=== PATIENT | female | born 1990 | race Caucasian/White ===

== ENCOUNTER 2017-02-10 22:06 | Inpatient (IN) | payer OTHER ==
[2017-02-11] MEDS ORDERED: Nalbuphine 20 MG/1 ML Amp IVPUSH PRN (00:08)
[2017-02-11] MEDS ORDERED: Sodium Chloride 0.9% 10 ML Syringe FLUSH PRN (00:08)
[2017-02-11] MEDS ORDERED: Oxytocin/Lactated Ringers 10 UNIT/1,000 ML BAG IV SCH ×2 (00:15→05:15)
[2017-02-11] MEDS: Lactated Ringers 1,000 ML IV SCH ×6 (01:30→16:45)
--- NOTE | 2017-02-11 06:30 | PCM.LDHP ---
L&D History of Present Illness - General Date of Service: 02/11/17 Admit Problem/Dx: Patient Status Order with Admit Dx/Problem 02/10/17 22:35 Patient Status [ADT] Routine Patient Status: Refer to Observation Admission Diagnosis/Problem: Reason for Admit: Nurse Unit Type: Labor and Delivery Admitting Physician: Aspen Camargo Attending Physician: Aspen Camargo Medicare 96 Hour Certification Statement: This Patient is Admitted for Inpatient Services and is Medically Appropriate and Meets Medical Necessity for Inpatient Admission. I Reasonably Expect the Patient Will Require Inpatient Services That Span a Period of Time Over 2 Midnights. My Rationale for Medically Necessary Inpatient Care Will Be Found in the Admission History & Physical and Progress Notes. I Reasonably Expect the Patient to be Discharged or Transferred Within 96 Hours After Admission to This [facility]. Admission Diagnosis/Problem Admission Diagnosis/Problem Source of Information: Patient History Limitations: Reports: No limitations - History of Present Illness Introduction:: Patient is a 26-year-old at 38-5/7 weeks who presents tonight with spontaneous rupture of membranes. Happened around 9 PM or so. Minimal contractions or cramping since that time. 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: : 1 Para: 0 - Infectious Disease History Infectious Disease History: Reports: Herpes - Past Surgical History HEENT Surgical History: Reports: Tonsillectomy Social & Family History - Family History HEENT: Reports: None Cardiac: Reports: None GI: Reports: Other (see below) Other GI Family History: colon cancer mother OBGYN: Reports: Oncologic: Reports: Colon, Leukemia, Skin - Tobacco Use Smoking Status *Q: Never Smoker Second Hand Smoke Exposure: No - Caffeine Use Caffeine Use: Reports: None - Recreational Drug Use Recreational Drug Use: No H&P Review of Systems - Review of Systems: Review Of Systems: See Below General: Reports: no symptoms Pulmonary: Reports: No Symptoms Cardiovascular: Reports: no symptoms Gastrointestinal: Reports: No symptoms Genitourinary: Reports: no symptoms Musculoskeletal: Reports: no symptoms L&D Exam - Exam Exam: See Below - Vital Signs Vital Signs: Last Vital Signs Temp 36.7 C 02/11/17 00:08 Pulse 73 02/11/17 00:08 Resp 16 02/11/17 00:08 BP 121/60 02/11/17 00:08 Pulse Ox Weight: 77.111 kg - OB Specific Contraction Intensity: Irritability movement: active heart tones: present heart tones per min: 115 Heart Rate (FHR) Variability: Moderate (6-25 bmp) Presentation: Vertex - Silva Score Silva Score Cervix Position: Midposition Silva Score Consistency: Soft Silva Score Effacement: 51-70% Silva Score Dilation: 1-2 cm Silva Score 's Station: -2 Silva Score Total: 7 - Exam General: alert, oriented, cooperative Lungs: Clear to auscultation, Normal respiratory effort Cardiovascular: regular rate, regular rhythm Abdomen: soft Genitourinary: Normal external exam Extremities: normal inspection Skin: warm, dry, intact - Patient Data Lab Results last 24 hrs: Laboratory Results - last 24 hr 02/11/17 02/11/17 Range/Units 00:30 00:30 WBC 8.48 (3.98-10.04) K/mm3 RBC 3.75 L (3.98-5.22) M/mm3 Hgb 11.5 (11.2-15.7) gm/L Hct 33.6 L (34.1-44.9) % MCV 89.6 (79.4-94.8) fl MCH 30.7 (25.6-32.2) pg MCHC 34.2 (32.2-35.5) g/dl RDW Std Deviation 41.9 (36.4-46.3) fL Plt Count 159 L (182-369) K/mm3 MPV 10.9 (9.4-12.3) fl Neut % (Auto) 70.7 (34.0-71.1) % Lymph % (Auto) 19.1 L (19.3-51.7) % Hardy % (Auto) 9.4 (4.7-12.5) % Eos % (Auto) 0.6 L (0.7-5.8) Baso % (Auto) 0.1 (0.1-1.2) % Neut # (Auto) 5.99 (1.56-6.13) K/mm3 Lymph # (Auto) 1.62 (1.18-3.74) K/mm3 [place] # (Auto) 0.80 H (0.24-0.36) K/mm3 Eos # (Auto) 0.05 (0.04-0.36) K/mm3 Baso # (Auto) 0.01 (0.01-0.08) K/mm3 Blood Type O POSITIVE Gel Antibody Screen Negative Result Diagrams: 02/11/17 00:30 - Problem List (1) 38 weeks gestation of SNOMED Code(s): 38949939 ICD Code: Z3A.38 - 38 WEEKS GESTATION OF Status: Acute Current Visit: Yes (2) SROM (spontaneous rupture of membranes) SNOMED Code(s): 297894980 ICD Code: HBX0297 - Status: Acute Current Visit: Yes Problem List Initiated/Reviewed/Updated: Yes Orders Last 24hrs: Active Orders 24 hr Category Date Time Status Patient Status [ADT] Routine ADT 02/10/17 22:35 Active Activity as Tolerated [RC] PFP Care 02/11/17 00:08 Active Communication Order [RC] ASDIRECTED Care 02/11/17 00:08 Active Notify Provider [RC] PFP Care 02/11/17 00:08 Active Notify Provider [RC] PRN Care 02/11/17 00:08 Active Peripheral IV Care [RC] . DIRECTED Care 02/11/17 00:10 Active Urinary Catheter Assessment [RC] ASDIRECTED Care 02/11/17 00:08 Active Vital Signs [RC] PER UNIT ROUTINE Care 02/11/17 00:08 Active Clear Liquid Diet [DIET] Diet 02/11/17 Breakfast Active PATIENT RETYPE [BBK] Stat Lab 02/11/17 00:30 Results TYPE AND SCREEN [BBK] Stat Lab 02/11/17 00:30 Results Lactated Ringers [Ringers, Lactated] 1,000 ml Med 02/11/17 00:15 Active IV ASDIRECTED Nalbuphine [Nubain] Med 02/11/17 00:08 Active 10 mg IVPUSH Q2H PRN Oxytocin/Lactated Ringers [Pitocin in LR 10 Units/1,000 Med 02/11/17 00:15 Active ML] 10 unit in 1,000 ml IV TITRATE Oxytocin/Lactated Ringers [Pitocin in LR 10 Units/1,000 Med 02/11/17 05:15 Active ML] 10 unit in 1,000 ml IV TITRATE Sodium Chloride 0.9% [Saline Flush] Med 02/11/17 00:08 Active 10 ml FLUSH ASDIRECTED PRN Electronic Heart Tones Ext w TOCO [WOMSER] Oth 02/11/17 00:08 Ordered Routine Electronic Heart Tones Internal [WOMSER] Per Unit Ot 02/11/17 00:08 Ordered Routine Peripheral IV Insertion Adult [OM.PC] Routine Ot 02/11/17 00:08 Ordered Resuscitation Status Routine Resus Stat 02/11/17 00:08 Ordered Medication Orders Lactated Ringer's (Ringers, Lactated) 1,000 mls @ 100 mls/hr IV ASDIRECTED SHANICE Last Admin: 02/11/17 01:30 Dose: 100 mls/hr Oxytocin/Lactated Ringer's (Pitocin In Lr 10 Units/1,000 Ml) 10 unit in 1,000 mls @ 500 mls/hr IV TITRATE SHANICE Oxytocin/Lactated Ringer's (Pitocin In Lr 10 Units/1,000 Ml) 10 unit in 1,000 mls @ 12 mls/hr IV TITRATE SHANICE; 2 MUNITS/MIN PRN Reason: Protocol Nalbuphine HCl (Nubain) 10 mg IVPUSH Q2H PRN PRN Reason: Pain (moderate 4-6) Sodium Chloride (Saline Flush) 10 ml FLUSH ASDIRECTED PRN PRN Reason: Keep Vein Open Assessment/Plan Comment:: 26 y/o at 38 5/7 wks with SROM * CBC and type and screen * GBS negative, no need for antibiotics * History of HSV, has been on acyclovir prophylaxis * If no initiation of contractions on her own and we'll have to start Pitocin for augmentation * Pain management per patient preference * Anticipate
--- NOTE | 2017-02-11 06:32 | PCM.PNLD ---
Labor Progress Note - VS & Meds Vital Signs: Last Vital Signs Temp 36.7 C 02/11/17 00:08 Pulse 73 02/11/17 00:08 Resp 16 02/11/17 00:08 BP 121/60 02/11/17 00:08 Pulse Ox Active Medications: Current Medications Lactated Ringer's (Ringers, Lactated) 1,000 mls @ 100 mls/hr IV ASDIRECTED SHANICE Last Admin: 02/11/17 01:30 Dose: 100 mls/hr Oxytocin/Lactated Ringer's (Pitocin In Lr 10 Units/1,000 Ml) 10 unit in 1,000 mls @ 500 mls/hr IV TITRATE SHANICE Oxytocin/Lactated Ringer's (Pitocin In Lr 10 Units/1,000 Ml) 10 unit in 1,000 mls @ 12 mls/hr IV TITRATE SHANICE; 2 MUNITS/MIN PRN Reason: Protocol Nalbuphine HCl (Nubain) 10 mg IVPUSH Q2H PRN PRN Reason: Pain (moderate 4-6) Sodium Chloride (Saline Flush) 10 ml FLUSH ASDIRECTED PRN PRN Reason: Keep Vein Open - Uterine Contractions Uterine Monitoring Mode: External [place] Contraction Intensity: Moderate - Monitoring Monitor Mode: External Ultrasound Heart Rate (FHR) Baseline: 110 Heart Rate (FHR) Variability: Moderate (6-25 bmp) Accelerations: Present, 15x15 Decelerations: Early Strip Review: Category I - Labor Progress (Free Text) Labor Progress: Patient doing well. On 10 of pitocin. Now starting to feel uncomfortable. Defer SVE for now. Continue present management.
[2017-02-11] MEDS ORDERED: diphenhydrAMINE 50 MG/ML SDV IVPUSH PRN (07:36)
[2017-02-11] MEDS ORDERED: Ondansetron 4 MG/2 ML SDV IVPUSH PRN (07:36)
[2017-02-11] MEDS ORDERED: fentaNYL 100 MCG/2 ML SDV EPIDUR PRN (07:36)
[2017-02-11] MEDS ORDERED: ePHEDrine 50 MG/ML SDV IVPUSH PRN (07:36)
--- NOTE | 2017-02-11 07:36 | PCM.PREANE ---
Preanesthetic Assessment - Anesthesia/Transfusion/Family Hx Anesthesia History: Prior Anesthesia Without Reaction Transfusion History: No Prior Transfusion(s) - Physical Assessment Respiratory Rate: 16 Vital Signs: Last Vital Signs Temp 36.7 C 02/11/17 00:08 Pulse 73 02/11/17 00:08 Resp 16 02/11/17 00:08 BP 121/60 02/11/17 00:08 Pulse Ox Height: 1.57 m Weight: 77.111 kg - Lab Values: Laboratory Last Values WBC 8.48 K/mm3 (3.98-10.04) 02/11/17 00:30 RBC 3.75 M/mm3 (3.98-5.22) L 02/11/17 00:30 Hgb 11.5 gm/L (11.2-15.7) 02/11/17 00:30 Hct 33.6 % (34.1-44.9) L 02/11/17 00:30 MCV 89.6 fl (79.4-94.8) 02/11/17 00:30 MCH 30.7 pg (25.6-32.2) 02/11/17 00:30 MCHC 34.2 g/dl (32.2-35.5) 02/11/17 00:30 RDW Std Deviation 41.9 fL (36.4-46.3) 02/11/17 00:30 Plt Count 159 K/mm3 (182-369) L 02/11/17 00:30 MPV 10.9 fl (9.4-12.3) 02/11/17 00:30 Neut % (Auto) 70.7 % (34.0-71.1) 02/11/17 00:30 Lymph % (Auto) 19.1 % (19.3-51.7) L 02/11/17 00:30 [place] % (Auto) 9.4 % (4.7-12.5) 02/11/17 00:30 Eos % (Auto) 0.6 (0.7-5.8) L 02/11/17 00:30 Baso % (Auto) 0.1 % (0.1-1.2) 02/11/17 00:30 Neut # (Auto) 5.99 K/mm3 (1.56-6.13) 02/11/17 00:30 Lymph # (Auto) 1.62 K/mm3 (1.18-3.74) 02/11/17 00:30 [place] # (Auto) 0.80 K/mm3 (0.24-0.36) H 02/11/17 00:30 Eos # (Auto) 0.05 K/mm3 (0.04-0.36) 02/11/17 00:30 Baso # (Auto) 0.01 K/mm3 (0.01-0.08) 02/11/17 00:30 Blood Type O POSITIVE 02/11/17 00:30 Gel Antibody Screen Negative 02/11/17 00:30 - Allergies Allergies/Adverse Reactions: Allergies Allergy/AdvReac Type Severity Reaction Status Date / Time No Known Allergies Allergy Verified 02/01/17 00:00 PreAnesthesia Questionnaire - Past Health History Medical/Surgical History: Denies 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: - Infectious Disease History Infectious Disease History: Reports: Herpes - SUBSTANCE USE Smoking Status *Q: Never Smoker Second Hand Smoke Exposure: No Recreational Drug Use History: No - HOME MEDS Home Medications: Home Meds Ferrous Sulfate [Iron] 325 mg PO DAILY 02/01/17 [History] Vit #76/Iron,Carb/Fa [Pnv 29-1 Tablet] 1 each PO DAILY 02/01/17 [ History] valACYclovir HCl [Valacyclovir] 500 mg Q12HR MDD tid 02/01/17 [History] - CURRENT (IN HOUSE) MEDS Current Meds: Current Medications Lactated Ringer's (Ringers, Lactated) 1,000 mls @ 100 mls/hr IV ASDIRECTED SHANICE Last Admin: 02/11/17 01:30 Dose: 100 mls/hr Oxytocin/Lactated Ringer's (Pitocin In Lr 10 Units/1,000 Ml) 10 unit in 1,000 mls @ 500 mls/hr IV TITRATE SHANICE Oxytocin/Lactated Ringer's (Pitocin In Lr 10 Units/1,000 Ml) 10 unit in 1,000 mls @ 12 mls/hr IV TITRATE SHANICE; 2 MUNITS/MIN PRN Reason: Protocol Nalbuphine HCl (Nubain) 10 mg IVPUSH Q2H PRN PRN Reason: Pain (moderate 4-6) Sodium Chloride (Saline Flush) 10 ml FLUSH ASDIRECTED PRN PRN Reason: Keep Vein Open Preanesthetic Assessment - ANESTHESIA/TRANSFUSION/FAMILY HX Anesthesia/Transfusion History: No Prior Transfusion(s), Prior Anesthesia ( wisdom teeth extraction, no problems ) Family History of Anesthesia Reaction: No Intubation History: Unknown - REVIEW OF SYSTEMS Constitutional: Reports: no symptoms 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 Respiratory: Reports: no symptoms Cardiovascular: Reports: no symptoms GI: Reports: no symptoms Other: Reports: None - PHYSICAL ASSESSMENT RR: 16 Vital Signs: Last Vital Signs Temp 36.7 C 02/11/17 00:08 Pulse 73 02/11/17 00:08 Resp 16 02/11/17 00:08 BP 121/60 02/11/17 00:08 Pulse Ox Height: 1.57 m Weight: 77.111 kg NPO Status Date: 02/11/17 NPO Status Time: 05:00 ASA Class: 2 Mental Status: Alert & Oriented x3 Airway Class: Mallampati = 1 Dentition: Reports: Normal Dentition Thyro-Mental Finger Breadths: 3 ROM/Head Extension: Full Respiratory Status: lungs clear to auscultation bilaterally Cardiovascular Status: regular rate & rhythm, normal S1, S2, no murmur, blood pressure WNL - LAB Values: Laboratory Last Values WBC 8.48 K/mm3 (3.98-10.04) 02/11/17 00:30 RBC 3.75 M/mm3 (3.98-5.22) L 02/11/17 00:30 Hgb 11.5 gm/L (11.2-15.7) 02/11/17 00:30 Hct 33.6 % (34.1-44.9) L 02/11/17 00:30 MCV 89.6 fl (79.4-94.8) 02/11/17 00:30 MCH 30.7 pg (25.6-32.2) 02/11/17 00:30 MCHC 34.2 g/dl (32.2-35.5) 02/11/17 00:30 RDW Std Deviation 41.9 fL (36.4-46.3) 02/11/17 00:30 Plt Count 159 K/mm3 (182-369) L 02/11/17 00:30 MPV 10.9 fl (9.4-12.3) 02/11/17 00:30 Neut % (Auto) 70.7 % (34.0-71.1) 02/11/17 00:30 Lymph % (Auto) 19.1 % (19.3-51.7) L 02/11/17 00:30 [place] % (Auto) 9.4 % (4.7-12.5) 02/11/17 00:30 Eos % (Auto) 0.6 (0.7-5.8) L 02/11/17 00:30 Baso % (Auto) 0.1 % (0.1-1.2) 02/11/17 00:30 Neut # (Auto) 5.99 K/mm3 (1.56-6.13) 02/11/17 00:30 Lymph # (Auto) 1.62 K/mm3 (1.18-3.74) 02/11/17 00:30 [place] # (Auto) 0.80 K/mm3 (0.24-0.36) H 02/11/17 00:30 Eos # (Auto) 0.05 K/mm3 (0.04-0.36) 02/11/17 00:30 Baso # (Auto) 0.01 K/mm3 (0.01-0.08) 02/11/17 00:30 Blood Type O POSITIVE 02/11/17 00:30 Gel Antibody Screen Negative 02/11/17 00:30 - ALLERGIES Allergies/Adverse Reactions: Allergies Allergy/AdvReac Type Severity Reaction Status Date / Time No Known Allergies Allergy Verified 02/01/17 00:00 - BLOOD Blood Available: No Product(s) Available: None - ANESTHESIA PLAN Preop Beta Cuco: No Anesthesia Type Planned: Epidural - ACKNOWLEDGEMENTS Pt an Appropriate Candidate for the Planned Anesthesia: Yes Alternatives and Risks of Anesthesia Discussed w Pt/Guardian: Yes Pt/Guardian Understands and Agrees with Anesthesia Plan: Yes
[2017-02-11] MEDS: Bupivacaine/fentaNYL/NS 100 ML Bag EPIDUR SCH ×2 (07:57→14:09)
--- NOTE | 2017-02-11 13:21 | PCM.PNLD ---
Labor Progress Note - VS & Meds Vital Signs: Last Vital Signs Temp 36.7 C 02/11/17 00:08 Pulse 73 02/11/17 00:08 Resp 16 02/11/17 07:36 BP 121/60 02/11/17 00:08 Pulse Ox Active Medications: Current Medications Diphenhydramine HCl (Benadryl) 25 mg IVPUSH Q6H PRN PRN Reason: Pruritis Ephedrine Sulfate (Ephedrine Sulfate) 5 mg IVPUSH ASDIRECTED PRN PRN Reason: Hypotension Fentanyl (Sublimaze) 100 mcg EPIDUR Q3H PRN PRN Reason: Pain Last Admin: 02/11/17 07:57 Dose: 100 mcg Fentanyl/Bupivacaine HCl (Fentanyl/Bupivacaine/Ns 2 Mcg-0.125% 100 Ml) 100 ml EPIDUR ASDIRECTED SHANICE Last Admin: 02/11/17 07:57 Dose: 100 ml Lactated Ringer's (Ringers, Lactated) 1,000 mls @ 100 mls/hr IV ASDIRECTED SHANICE Last Admin: 02/11/17 10:55 Dose: 100 mls/hr Oxytocin/Lactated Ringer's (Pitocin In Lr 10 Units/1,000 Ml) 10 unit in 1,000 mls @ 500 mls/hr IV TITRATE SHANICE Oxytocin/Lactated Ringer's (Pitocin In Lr 10 Units/1,000 Ml) 10 unit in 1,000 mls @ 12 mls/hr IV TITRATE SHANICE; 2 MUNITS/MIN PRN Reason: Protocol Last Titration: 02/11/17 09:00 Dose: 0 munits/min, 0 mls/hr Nalbuphine HCl (Nubain) 10 mg IVPUSH Q2H PRN PRN Reason: Pain (moderate 4-6) Ondansetron HCl (Zofran) 4 mg IVPUSH ONETIME PRN PRN Reason: Nausea/Vomiting Sodium Chloride (Saline Flush) 10 ml FLUSH ASDIRECTED PRN PRN Reason: Keep Vein Open - Uterine Contractions Uterine Monitoring Mode: External [place] Contraction Intensity: Moderate to Strong - Monitoring Monitor Mode: External Ultrasound Heart Rate (FHR) Baseline: 110 Heart Rate (FHR) Variability: Moderate (6-25 bmp) Accelerations: Present, 15x15 Decelerations: Early, Late (Intermittent ) Strip Review: Category II - Vaginal Exam Dilation (cm): 8 Effacement (Percent): 80-90 Station: 0 Cervical Position: Anterior - Labor Progress (Free Text) Labor Progress: Patient doing well. Did have to have pitocin discontinued around 1000 due to some larger variables/intermittent late decelerations. Was 6 cm at that time. Currently again having early decelerations and some rare late decelerations. 8 cm dilated. Will continue to assess closely. Consider re-initiation of pitocin if needed. Aspen Camargo
[2017-02-11] MEDS ORDERED: Sodium Chloride 0.9% 100 ML ONE (16:59)
[2017-02-11] MEDS ORDERED: Ampicillin 2 GM in Sodium Chloride 0.9% 100 ML IV ONE (17:00)
[2017-02-11] MEDS ORDERED: Docusate Sodium 100 MG Cap PO PRN (18:02)
[2017-02-11] MEDS ORDERED: Acetaminophen 325 MG Tab PO PRN (18:02)
[2017-02-11] MEDS ORDERED: Oxytocin/Lactated Ringers 10 UNIT/1,000 ML BAG IV ONE (18:05)
--- NOTE | 2017-02-11 18:09 | PCM.DEL ---
L & D Note - General Info Date of Service: 02/11/17 - Delivery Note Labor: augmented by oxytocin Delivery Outcome: Livebirth Delivery Method: Spontaneous Vaginal Delivery Presentation: Vertex Nuchal cord: none Anesthesia Type: Epidural Amniotic Fluid Description: Clear Episiotomy Type: None Laceration: 2nd degree, perineal Suture type: vicryl Suture size: 2-0 Placenta: intact, spontaneous Cord: 3 vessels Estimated blood loss: 300 Resuscitation needed: Yes [place]: bulb syringe, stimulated, warmed, blanket used, warmer used Delivery Comments (Free Text/Narrative):: Throughout patient's labor course she had times of late and variable decelerations, but none recurrent. Did have to restart pitocin as she had not progressed past 8 cm in approximately 4.5 hours. She then did progress to complete dilation. During this time she was found to have a moderate amount of bright red bleeding which was thought to be more than expected. OR crew was called to be on stand by. She started pushing at this time. With pushing she was noted to have deep variables into the 90's. After approximately 20 minutes of pushing baby also developed a rebound tachycardia into the 170's. She was also at Variables also did start to widen and were lasting about 45 seconds. Due to this combination of tachycardia and deeper/wider variables with pushing discussion was held to need for assisted vaginal delivery. Reviewed risks of lacerations to maternal vaginal wall, lacerations to scalp, and bleeding/ hematoma in skull/brain. She did agree to proceed. The patient was pushing in the dorsal lithotomy position. Sterile vaginal exam complete/complete/+3 station. head in [place] presentation. Maternal pushing effort was good and the pelvis was felt to be adequate for an instrument assisted delivery. Given non reassuring status the decision was made to proceed with vacuum assisted vaginal delivery. The mushroom cup was placed without difficulty with care to avoid the vaginal side major. It was put to a pressure of 65 mm Hg at 1712. Delivered occurred over 5 contractions with 1 pop off. Vacuum removed after delivery of head at 1721. Total time of vacuum use was 9 minutes. No nuchal cord present. The remainder of the infant delivered without difficulty. The umbilical cord was clamped and cut and the was handed to awaiting lock stitch channeler. Cord segment obtained for cord blood gas. ABG 7.33 and VBG 7.37. Cord blood obtained. Placenta allowed time to separate and spontaneously expelled. Inspection of the perineum following delivery with a 2nd degree laceration which was repaired with a 2-0 vicryl in the typical fashion. - Patient Data Vitals - most recent: Last Vital Signs Temp 36.7 C 02/11/17 00:08 Pulse 73 02/11/17 00:08 Resp 16 02/11/17 07:36 BP 121/60 02/11/17 00:08 Pulse Ox Weight - most recent: 77.111 kg I&O - last 24 hours: Intake & Output 02/11/17 02/11/17 02/11/17 06:59 14:59 22:59 Intake Total 120 Balance 120 Lab Results last 24 hrs: Laboratory Results - last 24 hr 02/11/17 02/11/17 Range/Units 00:30 00:30 WBC 8.48 (3.98-10.04) K/mm3 RBC 3.75 L (3.98-5.22) M/mm3 Hgb 11.5 (11.2-15.7) gm/L Hct 33.6 L (34.1-44.9) % MCV 89.6 (79.4-94.8) fl MCH 30.7 (25.6-32.2) pg MCHC 34.2 (32.2-35.5) g/dl RDW Std Deviation 41.9 (36.4-46.3) fL Plt Count 159 L (182-369) K/mm3 MPV 10.9 (9.4-12.3) fl Neut % (Auto) 70.7 (34.0-71.1) % Lymph % (Auto) 19.1 L (19.3-51.7) % [place] % (Auto) 9.4 (4.7-12.5) % Eos % (Auto) 0.6 L (0.7-5.8) Baso % (Auto) 0.1 (0.1-1.2) % Neut # (Auto) 5.99 (1.56-6.13) K/mm3 Lymph # (Auto) 1.62 (1.18-3.74) K/mm3 [place] # (Auto) 0.80 H (0.24-0.36) K/mm3 Eos # (Auto) 0.05 (0.04-0.36) K/mm3 Baso # (Auto) 0.01 (0.01-0.08) K/mm3 Blood Type O POSITIVE Gel Antibody Screen Negative Med Orders - Current: Current Medications Acetaminophen (Tylenol) 650 mg PO Q4H PRN PRN Reason: mild pain or fever Docusate Sodium (Colace) 100 mg PO BID PRN PRN Reason: Constipation Ibuprofen (Motrin) 600 mg PO Q4H PRN PRN Reason: Mild pain or fever Discontinued Medications Diphenhydramine HCl (Benadryl) 25 mg IVPUSH Q6H PRN PRN Reason: Pruritis Ephedrine Sulfate (Ephedrine Sulfate) 5 mg IVPUSH ASDIRECTED PRN PRN Reason: Hypotension Fentanyl (Sublimaze) 100 mcg EPIDUR Q3H PRN PRN Reason: Pain Last Admin: 02/11/17 07:57 Dose: 100 mcg Fentanyl/Bupivacaine HCl (Fentanyl/Bupivacaine/Ns 2 Mcg-0.125% 100 Ml) 100 ml EPIDUR ASDIRECTED SHANICE Last Admin: 02/11/17 14:09 Dose: 100 ml Lactated Ringer's (Ringers, Lactated) 1,000 mls @ 100 mls/hr IV ASDIRECTED SHANICE Last Admin: 02/11/17 16:45 Dose: 100 mls/hr Oxytocin/Lactated Ringer's (Pitocin In Lr 10 Units/1,000 Ml) 10 unit in 1,000 mls @ 500 mls/hr IV TITRATE SHANICE Oxytocin/Lactated Ringer's (Pitocin In Lr 10 Units/1,000 Ml) 10 unit in 1,000 mls @ 12 mls/hr IV TITRATE SHANICE; 2 MUNITS/MIN PRN Reason: Protocol Last Titration: 02/11/17 16:16 Dose: 0.5 munits/min, 3 mls/hr Ampicillin Sodium 2 gm/ Sodium (Chloride) 100 mls @ 200 mls/hr IV NOW ONE Stop: 02/11/17 17:29 Sodium Chloride (Normal Saline) Confirm Administered Dose 100 mls @ as directed .ROUTE .STK-MED ONE Stop: 02/11/17 17:00 Nalbuphine HCl (Nubain) 10 mg IVPUSH Q2H PRN PRN Reason: Pain (moderate 4-6) Ondansetron HCl (Zofran) 4 mg IVPUSH ONETIME PRN PRN Reason: Nausea/Vomiting Sodium Chloride (Saline Flush) 10 ml FLUSH ASDIRECTED PRN PRN Reason: Keep Vein Open - Problem List & Annotations (1) 38 weeks gestation of SNOMED Code(s): 18298941 Code(s): Z3A.38 - 38 WEEKS GESTATION OF Status: Acute Current Visit: Yes (2) SROM (spontaneous rupture of membranes) SNOMED Code(s): 583291242 Code(s): TFW4636 - Status: Acute Current Visit: Yes (3) Maternal fever during labor SNOMED Code(s): 52382373, 501591810 Code(s): O75.2 - PYREXIA DURING LABOR, NOT ELSEWHERE CLASSIFIED Status: Acute Current Visit: Yes (4) Non-reassuring status SNOMED Code(s): 842296446 Code(s): WYB5248 - Status: Acute Current Visit: Yes (5) Vacuum extraction, delivered, current hospitalization SNOMED Code(s): 191468632 Code(s): O66.5 - ATTEMPTED APPLICATION OF VACUUM EXTRACTOR AND FORCEPS Status: Acute Current Visit: Yes - Problem List Review Problem List Initiated/Reviewed/Updated: Yes - My Orders Last 24 Hours: My Active Orders 02/11/17 00:08 Urinary Catheter Assessment [RC] ASDIRECTED Resuscitation Status Routine 02/11/17 10:56 Communication Order [RC] ASDIRECTED 02/11/17 17:45 BLOOD GAS ARTERIAL UMBILICAL [BG] Routine BLOOD GAS VENOUS UMBILICAL [BG] Routine 02/11/17 18:02 Activity as Tolerated [RC] PER UNIT ROUTINE Vital Signs [RC] ASDIRECTED Acetaminophen [Tylenol] 650 mg PO Q4H PRN Docusate Sodium [Colace] 100 mg PO BID PRN Ibuprofen [Motrin] 600 mg PO Q4H PRN Assess Lochia [WOMSER] Per Unit Routine Assess Uterine Involution [WOMSER] Per Unit Routine Breast Pump [WOMSER] Per Unit Routine Heat Therapy [OM.PC] PRN Ice Therapy [OM.PC] Per Unit Routine Perineal Care [OM.PC] Per Unit Routine Peripheral IV Discontinue [OM.PC] Routine Sitz Bath [OM.PC] Per Unit Routine 02/11/17 Dinner Regular Diet [DIET] 02/12/17 18:02 Heat Therapy [OM.PC] PRN - Assessment Assessment:: 26 y/o G1 now P1 PPD#0 from [facility] at 38 5/7 wks - Plan Plan:: [facility] * Routine cares * Received 1 dose of antibiotics in labor for fever during pushing. Will not continue currently, but monitor closely * Encourage breast feeding * Discharge home in 1-2 days Aspen Camargo MD
[2017-02-11] MEDS ORDERED: Bupivacaine 0.25% 10 ML SDV ONE (19:00)
[2017-02-11] MEDS: Ibuprofen 600 MG Tab PO PRN (21:45)
[2017-02-12] MEDS ORDERED: Witch Hazel Medicated Pads 100/Jar TOP PRN (02:32)
[2017-02-12] MEDS ORDERED: Benzocaine/Menthol 20%-0.5% Spray 56 GM Canister TOP PRN ×2 (02:32→02:35)
[2017-02-12] MEDS: Ibuprofen 600 MG Tab PO PRN ×4 (04:27→21:09)
--- NOTE | 2017-02-12 06:54 | PCM.PNPP ---
- General Info Date of Service: 02/12/17 Functional Status: Reports: pain controlled, tolerating diet, ambulating, urinating - Review of Systems General: Reports: No Symptoms Pulmonary: Reports: no symptoms Cardiovascular: Reports: No Symptoms Gastrointestinal: Reports: No symptoms Genitourinary: Reports: no symptoms Musculoskeletal: Reports: no symptoms Neurological: Reports: No Symptoms - Patient Data Vital Signs - most recent: Last Vital Signs Temp 36.4 C 02/12/17 04:18 Pulse 64 02/12/17 04:00 Resp 16 02/12/17 04:18 BP 113/58 L 02/12/17 04:18 Pulse Ox Weight - most recent: 77.111 kg I&O - last 24 hours: Intake & Output 02/11/17 02/11/17 02/12/17 14:59 22:59 06:59 Intake Total 120 Balance 120 Lab Results - last 24 hrs: Laboratory Results - last 24 hr 02/11/17 02/11/17 Range/Units 00:30 17:45 Cord ABG pH 7.33 H (7.22-7.32) Cord ABG pCO2 41.9 L (42-58) Cord ABG pO2 30 H (12-24) Cord ABG HCO3 21.2 L (24-26) Cord ABG Base Excess -4.2 (-5.5-0.1) Cord VBG pH 7.37 (7.28-7.40) Cord VBG pCO2 36.5 (32.8-38.6) Cord VBG pO2 29 (28-32) Cord VBG HCO3 20.4 (19-24) Cord VBG Base Excess -3.8 (-4.4-0.4) Blood Type O POSITIVE Gel Antibody Screen Negative Med Orders - Current: Current Medications Acetaminophen (Tylenol) 650 mg PO Q4H PRN PRN Reason: mild pain or fever Benzocaine/Menthol (Dermoplast Pain Relief [place]) 0 gm TOP ASDIRECTED PRN PRN Reason: Pain Docusate Sodium (Colace) 100 mg PO BID PRN PRN Reason: Constipation Ibuprofen (Motrin) 600 mg PO Q4H PRN PRN Reason: Mild pain or fever Last Admin: 02/12/17 04:27 Dose: 600 mg Witch Claudia (Tucks) 1 pad TOP ASDIRECTED PRN PRN Reason: Pain Discontinued Medications Benzocaine/Menthol (Dermoplast Pain Relief [place]) 1 gm TOP ASDIRECTED PRN PRN Reason: Pain Diphenhydramine HCl (Benadryl) 25 mg IVPUSH Q6H PRN PRN Reason: Pruritis Ephedrine Sulfate (Ephedrine Sulfate) 5 mg IVPUSH ASDIRECTED PRN PRN Reason: Hypotension Fentanyl (Sublimaze) 100 mcg EPIDUR Q3H PRN PRN Reason: Pain Last Admin: 02/11/17 07:57 Dose: 100 mcg Fentanyl/Bupivacaine HCl (Fentanyl/Bupivacaine/Ns 2 Mcg-0.125% 100 Ml) 100 ml EPIDUR ASDIRECTED SHANICE Last Admin: 02/11/17 14:09 Dose: 100 ml Lactated Ringer's (Ringers, Lactated) 1,000 mls @ 100 mls/hr IV ASDIRECTED SHANICE Last Admin: 02/11/17 16:45 Dose: 100 mls/hr Oxytocin/Lactated Ringer's (Pitocin In Lr 10 Units/1,000 Ml) 10 unit in 1,000 mls @ 500 mls/hr IV TITRATE SHANICE Last Admin: 02/11/17 18:10 Dose: 750 mls/hr Oxytocin/Lactated Ringer's (Pitocin In Lr 10 Units/1,000 Ml) 10 unit in 1,000 mls @ 12 mls/hr IV TITRATE SHANICE; 2 MUNITS/MIN PRN Reason: Protocol Last Titration: 02/11/17 16:16 Dose: 0.5 munits/min, 3 mls/hr Ampicillin Sodium 2 gm/ Sodium (Chloride) 100 mls @ 200 mls/hr IV NOW ONE Stop: 02/11/17 17:29 Last Admin: 02/11/17 17:00 Dose: 200 mls/hr Sodium Chloride (Normal Saline) Confirm Administered Dose 100 mls @ as directed .ROUTE .STK-MED ONE Stop: 02/11/17 17:00 Last Admin: 02/11/17 18:13 Dose: Not Given Oxytocin/Lactated Ringer's (Pitocin In Lr 10 Units/1,000 Ml) Confirm Administered Dose 10 unit in 1,000 mls @ as directed IV .STK-MED ONE Stop: 02/11/17 18:06 Last Admin: 02/11/17 18:13 Dose: Not Given Nalbuphine HCl (Nubain) 10 mg IVPUSH Q2H PRN PRN Reason: Pain (moderate 4-6) Ondansetron HCl (Zofran) 4 mg IVPUSH ONETIME PRN PRN Reason: Nausea/Vomiting Sodium Chloride (Saline Flush) 10 ml FLUSH ASDIRECTED PRN PRN Reason: Keep Vein Open - Infant Interaction Disposition, : to Nursery Infant Interaction: Not Applicable Feeding: Attempted ; Nursed Fair/Poor Support Person: Significant Other - Recovery Exam Fundal Tone: Firm Fundal Level: 1 Fingerbreadths Below Umbilicus Lochia Amount: Moderate Lochia Color: Rubra/Red Perineum Description: Intact, Minimal Bruising/Swelling Episiotomy/Laceration: Approximated Bladder Status: Voiding Urinary Elimination: Voided - Exam General: alert, oriented, cooperative Abdomen: soft, no tenderness Extremities: no edema Skin: warm, dry, intact - Problem List & Annotations (1) 38 weeks gestation of SNOMED Code(s): 05697453 Code(s): Z3A.38 - 38 WEEKS GESTATION OF Status: Acute Current Visit: Yes (2) SROM (spontaneous rupture of membranes) SNOMED Code(s): 132482365 Code(s): AQE0468 - Status: Acute Current Visit: Yes (3) Maternal fever during labor SNOMED Code(s): 46492262, 104189223 Code(s): O75.2 - PYREXIA DURING LABOR, NOT ELSEWHERE CLASSIFIED Status: Acute Current Visit: Yes (4) Non-reassuring status SNOMED Code(s): 640040483 Code(s): YHU1725 - Status: Acute Current Visit: Yes (5) Vacuum extraction, delivered, current hospitalization SNOMED Code(s): 010402172 Code(s): O66.5 - ATTEMPTED APPLICATION OF VACUUM EXTRACTOR AND FORCEPS Status: Acute Current Visit: Yes - Problem List Review Problem List Initiated/Reviewed/Updated: Yes - My Orders Last 24 Hours: My Active Orders 02/11/17 10:56 Communication Order [RC] ASDIRECTED 02/11/17 18:02 Activity as Tolerated [RC] PER UNIT ROUTINE Vital Signs [RC] 04,12,20 Acetaminophen [Tylenol] 650 mg PO Q4H PRN Docusate Sodium [Colace] 100 mg PO BID PRN Ibuprofen [Motrin] 600 mg PO Q4H PRN Assess Lochia [WOMSER] Per Unit Routine Assess Uterine Involution [WOMSER] Per Unit Routine Breast Pump [WOMSER] Per Unit Routine Heat Therapy [OM.PC] PRN Ice Therapy [OM.PC] Per Unit Routine Perineal Care [OM.PC] Per Unit Routine Peripheral IV Discontinue [OM.PC] Routine Sitz Bath [OM.PC] Per Unit Routine 02/11/17 Dinner Regular Diet [DIET] 02/12/17 02:32 Witch Claudia [Tucks] 1 pad TOP ASDIRECTED PRN 02/12/17 02:35 Benzocaine/Menthol [Dermoplast Pain Relief [place]] 0 gm TOP ASDIRECTED PRN 02/12/17 18:02 Heat Therapy [OM.PC] PRN - Assessment Assessment:: 26 y/o G1 now P1 PPD#1 from VAVD at 38 5/7 wks - Plan Plan:: VAVD * Routine cares * Received 1 dose of antibiotics in labor for fever during pushing. No fever , continue to monitor * Encourage breast feeding * Discharge home tomorrow although likely will be in house for further monitoring of baby. Baby boy Nguyễn with cephalohematoma after VAVD Aspen Camargo MD
--- NOTE | 2017-02-13 07:55 | PCM.DCSUM1 ---
Discharge Summary - Hospital Course Brief History: Admitted. VAVD. Unremarkable course. - Discharge Data Discharge Date: 02/13/17 Discharge Disposition: Home, Self-Care 01 Condition: Good - Discharge Diagnosis/Problem(s) (1) Vacuum extraction, delivered, current hospitalization SNOMED Code(s): 585960271 ICD Code: O66.5 - ATTEMPTED APPLICATION OF VACUUM EXTRACTOR AND [employer]CEPS Status: Acute Current Visit: Yes - Patient Instructions Diet: Usual Diet as Tolerated Activity: As Tolerated Activity, Other: pelvic rest Driving: May Drive Today Showering/Bathing: May Shower Notify Provider of: Fever, Increased Pain, Nausea and/or Vomiting - Discharge Plan Home Medications: Home Meds Ferrous Sulfate [Iron] 325 mg PO DAILY 02/01/17 [History] Vit #76/Iron,Carb/Fa [Pnv 29-1 Tablet] 1 each PO DAILY 02/01/17 [ History] valACYclovir HCl [Valacyclovir] 500 mg Q12HR MDD tid 02/01/17 [History] Referrals: Aspen Camargo MD [Primary Care Provider] - - Discharge Summary/Plan Comment DC Time >30 min.: No - Patient Data Vitals - Most Recent: Last Vital Signs Temp 36.6 C 02/13/17 04:12 Pulse 56 L 02/13/17 04:12 Resp 14 02/13/17 04:12 BP 110/69 02/13/17 04:12 Pulse Ox 97 02/13/17 04:12 Weight - Most Recent: 77.111 kg Med Orders - Current: Current Medications Acetaminophen (Tylenol) 650 mg PO Q4H PRN PRN Reason: mild pain or fever Benzocaine/Menthol (Dermoplast Pain Relief Given) 0 gm TOP ASDIRECTED PRN PRN Reason: Pain Docusate Sodium (Colace) 100 mg PO BID PRN PRN Reason: Constipation Ibuprofen (Motrin) 600 mg PO Q4H PRN PRN Reason: Mild pain or fever Last Admin: 02/12/17 21:09 Dose: 600 mg Witch Claudia (Tucks) 1 pad TOP ASDIRECTED PRN PRN Reason: Pain Discontinued Medications Benzocaine/Menthol (Dermoplast Pain Relief Given) 1 gm TOP ASDIRECTED PRN PRN Reason: Pain Diphenhydramine HCl (Benadryl) 25 mg IVPUSH Q6H PRN PRN Reason: Pruritis Ephedrine Sulfate (Ephedrine Sulfate) 5 mg IVPUSH ASDIRECTED PRN PRN Reason: Hypotension Fentanyl (Sublimaze) 100 mcg EPIDUR Q3H PRN PRN Reason: Pain Last Admin: 02/11/17 07:57 Dose: 100 mcg Fentanyl/Bupivacaine HCl (Fentanyl/Bupivacaine/Ns 2 Mcg-0.125% 100 Ml) 100 ml EPIDUR ASDIRECTED SHANICE Last Admin: 02/11/17 14:09 Dose: 100 ml Lactated Ringer's (Ringers, Lactated) 1,000 mls @ 100 mls/hr IV ASDIRECTED SHANICE Last Admin: 02/11/17 16:45 Dose: 100 mls/hr Oxytocin/Lactated Ringer's (Pitocin In Lr 10 Units/1,000 Ml) 10 unit in 1,000 mls @ 500 mls/hr IV TITRATE SHANICE Last Admin: 02/11/17 18:10 Dose: 750 mls/hr Oxytocin/Lactated Ringer's (Pitocin In Lr 10 Units/1,000 Ml) 10 unit in 1,000 mls @ 12 mls/hr IV TITRATE SHANICE; 2 MUNITS/MIN PRN Reason: Protocol Last Titration: 02/11/17 16:16 Dose: 0.5 munits/min, 3 mls/hr Ampicillin Sodium 2 gm/ Sodium (Chloride) 100 mls @ 200 mls/hr IV NOW ONE Stop: 02/11/17 17:29 Last Admin: 02/11/17 17:00 Dose: 200 mls/hr Sodium Chloride (Normal Saline) Confirm Administered Dose 100 mls @ as directed .ROUTE .STK-MED ONE Stop: 02/11/17 17:00 Last Admin: 02/11/17 18:13 Dose: Not Given Oxytocin/Lactated Ringer's (Pitocin In Lr 10 Units/1,000 Ml) Confirm Administered Dose 10 unit in 1,000 mls @ as directed IV .STK-MED ONE Stop: 02/11/17 18:06 Last Admin: 02/11/17 18:13 Dose: Not Given Nalbuphine HCl (Nubain) 10 mg IVPUSH Q2H PRN PRN Reason: Pain (moderate 4-6) Ondansetron HCl (Zofran) 4 mg IVPUSH ONETIME PRN PRN Reason: Nausea/Vomiting Sodium Chloride (Saline Flush) 10 ml FLUSH ASDIRECTED PRN PRN Reason: Keep Vein Open *Q Meaningful Use (DIS) - VTE *Q VTE Criteria *Q: - Stroke *Q Stroke Criteria *Q: - AMI *Q AMI Criteria *Q:
[2017-02-13] MEDS: Ibuprofen 600 MG Tab PO PRN (13:39)
[2017-02-13 14:16] VITALS: BP 112/70
[2017-02-13] MEDS ORDERED: Lanolin 100% Cream 7 GM Tube TOP PRN (17:49)
== END 2017-02-13 18:57 | disposition home or self-care (01) | DRG 775 ==
LOC: JD.OB 22:06 → JD.OBCHECK 22:06 → JD.OB 22:35 → JD.OBCHECK 23:34 → UNDOADMOB 23:35 → JD.OB 23:35 → OBSVTOIN 02-11 17:42
PROVIDERS: ADMIT Obstetrics & Gynecology; ATTEND Obstetrics & Gynecology
PROC: 10D07Z6 Extraction of Products of Conception, Vacuum, Via Natural or Artificial Opening (ICD-10-PCS; principal; 2017-02-11)
PROC: 0KQM0ZZ Repair Perineum Muscle, Open Approach (ICD-10-PCS; 2017-02-11)
PROC: 00HU33Z Insertion of Infusion Device into Spinal Canal, Percutaneous Approach (ICD-10-PCS; 2017-02-11)
PROC: 3E0R3CZ (ICD-10-PCS; 2017-02-11)
DX: O42.92 Full-term premature rupture of membranes, unspecified as to length of time between rupture and onset of labor (principal); Z3A.39 39 weeks gestation of pregnancy; Z37.0 Single live birth; O70.1 Second degree perineal laceration during delivery
CPT/HCPCS: 36415; 36600; 82803; 85025; 86850; 86900; 86901; A9270-GY; J0290; J2590; J3010; J7030; J7120

== ENCOUNTER 2021-04-06 01:57 | Inpatient (IN) | payer BC ==
[~2021-04-06 01:57] MED LIST: Bupivacaine 0.25% 10 ML SDV ONE
--- NOTE | 2021-04-06 03:27 | PCM.LDHP ---
L&D History of Present Illness - General Date of Service: 04/06/21 Admit Problem/Dx: Patient Status Order with Admit Dx/Problem 04/06/21 02:12 Patient Status [ADT] Routine Admission Diagnosis/Problem Admission Diagnosis/Problem 04/06/21 03:18 Jennifer is a 30-year-old 4 para 1-0-2-1 female who is admitted into labor and delivery on the early a.m. of 04/06/2021 at 39 weeks gestational age with an ADELINE of 04/13/2021 in active labor with progressive cervical dilation to 4+ centimeters, 90% effaced, anterior cervix, -2 station, intact but with questionable leakage of amniotic fluid with baby in a cephalic presentation. Source of Information: Patient History Limitations: Reports: No Limitations - History of Present Illness Introduction:: Jennifer is a 30-year-old 4 para 1-0-2-1 female who is admitted into labor and delivery on the early a.m. of 04/06/2021 at 39 weeks gestational age with an ADELINE of 04/13/2021 in active labor with progressive cervical dilation to 4+ centimeters, 90% effaced, anterior cervix, -2 station, intact but with questionable leakage of amniotic fluid with baby in a cephalic presentation. She reports that at approximately 2300 hrs. on 04/05/2021 she began having leakage of fluid as she is up to the bathroom. She soaked a pad. She had at least 1 or 2 other pads since that time that were saturated with what appears to be clear amniotic fluid. She is sheron every 3 minutes, they are progressive in nature in both length and intensity. heart tones are reassuring. Baby has been active. 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 She had menarche at approximately age 15. Cycles q. months. Her ADELINE of 04/13/2021 was set by an early ultrasound done at 6-1/7 weeks gestational age. Patient has a history of genital HSV but has not had any outbreaks during and has been on acyclovir 400 mg p.o. 3 times daily prophylactically since 36 weeks. She denies any signs or symptoms of HSV at this time. She denies any abnormal Pap smears or other STDs. course: Patient was seen early in the at approximately 6-1/7 weeks gestational age. She has been followed on a regular basis. Her weight gain has been from 143 pounds to 168 pounds for 25 pound increase. Fundal heigh t growth has been appropriate. Baby's been in a vertex presentation. She passed her 1 hour GTT. Follow-up ultrasound was consistent with dates. Immunizations include flu vaccination 09/13/2020. Meningococcal vaccination 2008. Hepatitis B 1991 and 1992. Laboratory testing in shows her blood to be all positive with a negative antibody screen. First hemoglobin was 12.7 g/dL and platelets were 227,000. Her rubella titer shows immunity. RPR was nonreactive. Hepatitis B surface antigen was nonreactive. Second trimester hemoglobin was 11.7 g/dL and platelets were 192,000. Her 1 hour GTT was normal at 71 mg/dL. Group B strep screen was positive. Allergies: None Medications: 1. vitamins 1 p.o. daily 2. Acyclovir 400 mg p.o. 3 times daily prophylactically for HSV history. Past medical history: 1. Miscarriage x2 1 associated with a D&C for treatment 2. Genital HSVremote history Past surgical history: 1. D&C 2. [place] tooth extraction Family history: Mother is secondary to colon cancer at age 54. Father is alive and well. One sister is healthy. Maternal grandmother and grandfather at age 96 and 80 respectively. Grandmother secondary to old age but did have breast cancer. Maternal grandmother deceasedAlzheimer's in his 80s. Maternal grandfather secondary to leukemia in his 80s. 2 paternal first cousins with history of breast cancer 1 with demise secondary to the breast cancer in her 40s. The other status post bilateral mastectomy. No anesthesia, bleeding, blood clotting problems noted in the family. Social history: Patient is . She works at [employer]. She does not use any significant also alcohol, drugs or tobacco. is Carlos. He works for the [employer]. Review of systems: In general patient has no complaints. She is sheron every 3 to 4 minutes but feels they are manageable at this point. Baby has been active. She has leakage of fluid as per HPI. Skin: Negative Lungs: No infectious symptoms or shortness of breath Cardiovascular: No chest pain or exercise intolerance Breasts: No lumps, changes in size, pain, dimpling, discharge or axillary or supraclavicular concerns. Patient plans to breast-feed. She has had changes associated with . GI: Negative : Leakage of amniotic fluid noted. Contractions present. Changes associated with . Musculoskeletal: Negative Neurological: Negative Physical exam: In general the patient is well-developed, well-nourished, pleasant female of stated age in no acute distress. Skin is warm dry without lesions. HEENT, neck and back within normal limits. Lungs are clear with good breath sounds in all lung todd. Cardiovascular exam shows regular and rhythm without murmurs. Breast exam is deferred having been done at first visit and found to be normal by patient's history. Abdomen is gravid with last fundal height clinic at 48 cm. Baby in vertex presentation. Genital per digital exam shows cervix to be 4+ centimeters, 90% effaced, bulging bag aguilar, anterior cervix, -2 station, cervix very soft. Extremities and neurological exam are grossly within normal limits. 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: - Infectious Disease History Infectious Disease History: Reports: Herpes - Past Surgical History HEENT Surgical History: Reports: Tonsillectomy Social & Family History - Family History HEENT: Reports: None Cardiac: Reports: None GI: Reports: Other (See Below) Other GI Family History: colon cancer mother OBGYN: Reports: Oncologic: Reports: Colon, Leukemia, Skin - Caffeine Use Caffeine Use: Reports: None H&P Review of Systems - Review of Systems: Review Of Systems: See Below L&D Exam - Exam Exam: See Below - Patient Data Lab Results Last 24 hrs: Laboratory Results - last 24 hr 04/06/21 Range/Units 02:36 Membrane Rupture Positive H - Problem List (1) 39 weeks gestation of SNOMED Code(s): 98824335 ICD Code: Z3A.39 - 39 WEEKS GESTATION OF Status: Acute Current Visit: Yes (2) Genital herpes simplex virus (HSV) infection in mother affecting SNOMED Code(s): 556580794898681 ICD Code: O98.319 - OTH INFECT W SEXL MODE OF TRANSMISS COMP PREG, UNSP TRI; A60.09 - HERPESVIRAL INFECTION OF OTHER UROGENITAL TRACT Status: Acute Current Visit: Yes (3) SROM (spontaneous rupture of membranes) SNOMED Code(s): 332476403 ICD Code: TAK6945 - Status: Acute Current Visit: Yes Problem List Initiated/Reviewed/Updated: Yes Orders Last 24hrs: Active Orders 24 hr Category Date Time Status Patient Status [ADT] Routine ADT 04/06/21 02:12 Active Non Stress Test [RC] PER UNIT ROUTINE Care 04/06/21 02:12 Active Vital Signs [RC] PER UNIT ROUTINE Care 04/06/21 02:12 Active Resuscitation Status Routine Resus Stat 04/06/21 02:12 Ordered Assessment/Plan Comment:: 1.Jennifer is a 30-year-old 4 para 1-0-2-1 female who is admitted into labor and delivery on the early a.m. of 04/06/2021 at 39 weeks gestational age with an ADELINE of 04/13/2021 in active labor with progressive cervical dilation to 4+ centimeters, 90% effaced, anterior cervix, -2 station, intact but with questionable leakage of amniotic fluid with baby in a cephalic presentation. 2. Group B strep positive statuscandidate for antibiotic prophylaxis with ampicillin 3. Plans to breast-feed 4. Would prefer natural childbirth if labor is rapid. Is open to epidural. 5. HSV positive history with no evidence of outbreak at this time and no symptoms of outbreak. She has been on acyclovir prophylactically since 36 weeks Plan: 1. Anticipate 2. Group B strep prophylaxis 3. Epidural per patient desire 4. Admission labs consist of CBC, Covid19 testing, RPR per protocol. 5. Support breast-feeding decision.
[2021-04-06] MEDS: Lactated Ringers 1,000 ML IV SCH ×3 (03:30→07:09)
[2021-04-06] MEDS ORDERED: Ampicillin 2 GM AdvVial IV ONE (03:34)
[2021-04-06] MEDS ORDERED: Sodium Chloride 0.9% 10 ML Syringe FLUSH PRN (03:59)
[2021-04-06] MEDS ORDERED: Ondansetron 4 MG/2 ML SDV IVPUSH PRN (03:59)
[2021-04-06] MEDS ORDERED: Nalbuphine 10 MG/1 ML Vial IVPUSH PRN (03:59)
[2021-04-06] MEDS ORDERED: Lidocaine 1% 50 ML MDV INJECT ONE (03:59)
[2021-04-06] MEDS ORDERED: Oxytocin/Lactated Ringers 10 UNIT/1,000 ML BAG IV SCH (04:00)
[2021-04-06] MEDS ORDERED: Ampicillin 2 GM in Sodium Chloride 0.9% 100 ML IV ONE (04:00)
[2021-04-06] MEDS ORDERED: fentaNYL 100 MCG/2 ML SDV ONE (05:04)
[2021-04-06] MEDS ORDERED: diphenhydrAMINE 50 MG/ML SDV IVPUSH PRN (05:14)
[2021-04-06] MEDS ORDERED: fentaNYL 100 MCG/2 ML SDV EPIDUR PRN (05:14)
[2021-04-06] MEDS ORDERED: ePHEDrine 50 MG/ML SDV IVPUSH PRN (05:14)
[2021-04-06] MEDS ORDERED: Bupivacaine/fentaNYL/NS 100 ML Bag EPIDUR PRN (05:14)
--- NOTE | 2021-04-06 05:55 | PCM.PREANE ---
Preanesthetic Assessment - Procedure Proposed Procedure: Labor Epidural - Anesthesia/Transfusion/Family Hx Anesthesia History: Prior Anesthesia Without Reaction Family History of Anesthesia Reaction: No Transfusion History: No Prior Transfusion(s) - Review of Systems General: No Symptoms Pulmonary: No Symptoms Cardiovascular: No Symptoms Gastrointestinal: No Symptoms Neurological: No Symptoms Other: Reports: None - Physical Assessment Vital Signs: Last Vital Signs Temp 36.5 C 04/06/21 03:00 Pulse 66 04/06/21 03:00 Resp 14 04/06/21 03:00 BP 105/57 L 04/06/21 03:00 Pulse Ox 99 04/06/21 03:00 Height: 1.6 m Weight: 76.204 kg ASA Class: 2 Mental Status: Alert & Oriented x3 Airway Class: Mallampati = 1 Dentition: Reports: Normal Dentition Thyro-Mental Finger Breadths: 3 Mouth Opening Finger Breadths: 3 ROM/Head Extension: Full Lungs: Clear to Auscultation, Normal Respiratory Effort Cardiovascular: Regular Rate, Regular Rhythm - Lab Values: Laboratory Last Values WBC 7.68 K/mm3 (3.98-10.04) 04/06/21 04:15 RBC 3.75 M/mm3 (3.98-5.22) L 04/06/21 04:15 Hgb 11.4 gm/dl (11.2-15.7) 04/06/21 04:15 Hct 33.8 % (34.1-44.9) L 04/06/21 04:15 MCV 90.1 fl (79.4-94.8) 04/06/21 04:15 MCH 30.4 pg (25.6-32.2) 04/06/21 04:15 MCHC 33.7 g/dl (32.2-35.5) 04/06/21 04:15 RDW Std Deviation 43.4 fL (36.4-46.3) 04/06/21 04:15 Plt Count 177 K/mm3 (182-369) L 04/06/21 04:15 MPV 10.7 fl (9.4-12.3) 04/06/21 04:15 Neut % (Auto) 70.4 % (34.0-71.1) 04/06/21 04:15 Lymph % (Auto) 20.6 % (19.3-51.7) 04/06/21 04:15 [place] % (Auto) 8.3 % (4.7-12.5) 04/06/21 04:15 Eos % (Auto) 0.5 (0.7-5.8) L 04/06/21 04:15 Baso % (Auto) 0.1 % (0.1-1.2) 04/06/21 04:15 Neut # (Auto) 5.40 K/mm3 (1.56-6.13) 04/06/21 04:15 Lymph # (Auto) 1.58 K/mm3 (1.18-3.74) 04/06/21 04:15 [place] # (Auto) 0.64 K/mm3 (0.24-0.36) H 04/06/21 04:15 Eos # (Auto) 0.04 K/mm3 (0.04-0.36) 04/06/21 04:15 Baso # (Auto) 0.01 K/mm3 (0.01-0.08) 04/06/21 04:15 Membrane Rupture Positive H 04/06/21 02:36 SARS-CoV-2 RNA (BRADEN) Negative (NEGATIVE) 04/06/21 03:40 - Allergies Allergies/Adverse Reactions: Allergies Allergy/AdvReac Type Severity Reaction Status Date / Time No Known Allergies Allergy Verified 02/01/17 00:00 - Acknowledgements Anesthesia Type Planned: Epidural Pt an Appropriate Candidate for the Planned Anesthesia: Yes Alternatives and Risks of Anesthesia Discussed w Pt/Guardian: Yes Pt/Guardian Understands and Agrees with Anesthesia Plan: Yes PreAnesthesia Questionnaire - Past Health History Medical/Surgical History: Denies Medical/Surgical History HEENT History: Reports: Other (See Below) Other 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 History: 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: - Infectious Disease History Infectious Disease History: Reports: Herpes - Past Surgical History HEENT Surgical History: Reports: Tonsillectomy - HOME MEDS Home Medications: Home Meds Ferrous Sulfate [Iron] 325 mg PO DAILY 02/01/17 [History] Vit #76/Iron,Carb/Fa [Pnv 29-1 Tablet] 1 each PO DAILY 02/01/17 [History] valACYclovir HCl [Valacyclovir] 500 mg Q12HR MDD tid 02/01/17 [History] - CURRENT (IN HOUSE) MEDS Current Meds: Current Medications Diphenhydramine HCl (Diphenhydramine 50 Mg/Ml Sdv) 25 mg IVPUSH Q6H PRN PRN Reason: pruritis Ephedrine Sulfate (Ephedrine 50 Mg/Ml Sdv) 5 mg IVPUSH ASDIRECTED PRN PRN Reason: Hypotension Fentanyl (Fentanyl 100 Mcg/2 Ml Sdv) 100 mcg EPIDUR Q3H PRN PRN Reason: Pain Last Admin: 04/06/21 05:38 Dose: 100 mcg Documented by: Fentanyl/Bupivacaine HCl (Bupivacaine/Fentanyl/Ns 100 Ml Bag) 100 ml EPIDUR ASDIRECTED PRN PRN Reason: Pain Last Admin: 04/06/21 05:38 Dose: 100 ml Documented by: Lactated Ringer's (Ringers, Lactated) 1,000 mls @ 100 mls/hr IV ASDIRECTED SHANICE Last Admin: 04/06/21 04:30 Dose: 100 mls/hr Documented by: Ampicillin Sodium 1 gm/ Sodium (Chloride) 100 mls @ 200 mls/hr IV Q4H SHANICE Oxytocin/Lactated Ringer's (Pitocin In Lr 10 Units/1,000 Ml) 10 unit in 1,000 mls @ 500 mls/hr IV .CONTINUOUS SHANICE Nalbuphine HCl (Nalbuphine 10 Mg/1 Ml Vial) 10 mg IVPUSH Q2H PRN PRN Reason: Pain Ondansetron HCl (Ondansetron 4 Mg/2 Ml Sdv) 4 mg IVPUSH Q4H PRN PRN Reason: Nausea/Vomiting Sodium Chloride (Sodium Chloride 0.9% 10 Ml Syringe) 10 ml FLUSH ASDIRECTED PRN PRN Reason: Keep Vein Open Discontinued Medications Ampicillin Sodium (Ampicillin 2 Gm Advvial) Confirm Administered Dose 2 gm IV .STK-MED ONE Stop: 04/06/21 03:35 Fentanyl (Fentanyl 100 Mcg/2 Ml Sdv) Confirm Administered Dose 100 mcg .ROUTE .STK-MED ONE Stop: 04/06/21 05:05 Ampicillin Sodium 2 gm/ Sodium (Chloride) 100 mls @ 200 mls/hr IV ONETIME ONE Stop: 04/06/21 04:29 Lidocaine HCl (Lidocaine 1% 50 Ml Mdv) 50 ml INJECT ONETIME ONE Stop: 04/06/21 04:00
[2021-04-06] MEDS ORDERED: Ampicillin 1 GM in Sodium Chloride 0.9% 100 ML IV SCH (08:00)
--- NOTE | 2021-04-06 10:23 | PCM.SN.2 ---
- Free Text/Narrative Note: Stage I: Jennifer is a 30-year-old 4 now para 2-0-2-2 female who was admitted into labor and delivery on the early a.m. of 04/06/2021 at 39 weeks gestational age with an ADELINE of 04/13/2021 in active labor with progressive cervical dilation to 4+ centimeters, 90% effaced, anterior cervix, -2 station, intact but with questionable leakage of amniotic fluid with baby in a cephalic presentation. AmniSure returned positive. She progressed steadily towards complete which she achieved at approximately 0830 hrs. on 04/06/2021. She had an epidural placed for labor analgesia with good results. Membranes were completely ruptured after epidural was placed. The heart tones were reassuring and vital signs were stable. She began pushing at the time of complete dilation and pushed for approximately 1 hour and 40 minutes. She was group B strep positive and had 2 doses of ampicillin per protocol prior to the time of delivery. Stage II: Jennifer delivered a viable, sánchez, female infant named Shira Jade in a direct occiput anterior position at 1002 hours on 04/06/2021. Delivery went without incident with gentle posterior traction to deliver the anterior shoulder and anterior traction delivering the posterior shoulder. The baby was placed on mom's abdomen, dried with warm blanket and nose and mouth were bulb suctioned. Pitocin infusion was increased to 500 cc an hour to facilitate increase in uterine tone and decrease likelihood of bleeding. The umbilical cord was allowed to pulsate for 3 minutes after which it was clamped x2 and cut by the baby's father Carlos. There were 3 vessels in the umbilical cord. Cord blood was obtained. Evaluation of the perineum and vagina showed no evidence of lacerations. The baby had Apgars of 8 and 9, a weight of 2850 g (6 pounds 5 ounces) and a length of 20 inches. Stage III: The placenta delivered at 1005 hours in a Padilla presentation. It appeared intact and complete and was discarded per patient desire. Estimated blood loss was 100 cc. Patient plans to breast-feed. Condition: Good.
[2021-04-06] MEDS ORDERED: Witch Hazel Medicated Pads 40/Jar TOP PRN (11:53)
[2021-04-06] MEDS ORDERED: Docusate Sodium 100 MG Cap PO PRN (11:53)
[2021-04-06] MEDS ORDERED: Benzocaine/Menthol 20%-0.5% Spray 56 GM Canister TOP PRN (11:53)
[2021-04-06] MEDS: Ibuprofen 600 MG Tab PO PRN ×2 (12:03→20:55)
--- NOTE | 2021-04-06 19:35 | PCM48HPAN ---
Post Anesthesia Note - EVALUATION WITHIN 48HRS OF ANESTHETIC Vital Signs in Normal Range: Yes Patient Participated in Evaluation: Yes Respiratory Function Stable: Yes Airway Patent: Yes Cardiovascular Function Stable: Yes Hydration Status Stable: Yes Pain Control Satisfactory: Yes Nausea and Vomiting Control Satisfactory: Yes Mental Status Recovered: Yes Vital Signs: Last Vital Signs Temp 37.2 C 04/06/21 04:49 Pulse 66 04/06/21 15:22 Resp 16 04/06/21 15:22 BP 107/49 L 04/06/21 15:22 Pulse Ox 97 04/06/21 15:22 - COMMENTS/OBSERVATIONS Free Text/Narrative:: Jennifer is sitting up in bed holding her baby. Satisfied with epidural coverage. No further questions or concerns at this time.
[2021-04-06] MEDS: Acetaminophen 325 MG Tab PO PRN (20:57)
[2021-04-07] MEDS: Ibuprofen 600 MG Tab PO PRN ×2 (01:05→05:01)
[2021-04-07] MEDS: Acetaminophen 325 MG Tab PO PRN ×2 (01:05→05:04)
--- NOTE | 2021-04-07 08:03 | PCM.DCSUM1 ---
Discharge Summary - Hospital Course Free Text/Narrative:: Stage I: Jennifer is a 30-year-old 4 now para 2-0-2-2 female who was admitted into labor and delivery on the early a.m. of 04/06/2021 at 39 weeks gestational age with an ADELINE of 04/13/2021 in active labor with progressive cervical dilation to 4+ centimeters, 90% effaced, anterior cervix, -2 station, intact but with questionable leakage of amniotic fluid with baby in a cephalic presentation. AmniSure returned positive. She progressed steadily towards complete which she achieved at approximately 0830 hrs. on 04/06/2021. She had an epidural placed for labor analgesia with good results. Membranes were completely ruptured after epidural was placed. The heart tones were reassuring and vital signs were stable. She began pushing at the time of complete dilation and pushed for approximately 1 hour and 40 minutes. She was group B strep positive and had 2 doses of ampicillin per protocol prior to the time of delivery. Stage II: Jennifer delivered a viable, sánchez, female infant named Shira Jade in a direct occiput anterior position at 1002 hours on 04/06/2021. Delivery went without incident with gentle posterior traction to deliver the anterior shoulder and anterior traction delivering the posterior shoulder. The baby was placed on mom's abdomen, dried with warm blanket and nose and mouth were bulb suctioned. Pitocin infusion was increased to 500 cc an hour to facilitate increase in uterine tone and decrease likelihood of bleeding. The umbilical cord was allowed to pulsate for 3 minutes after which it was clamped x2 and cut by the baby's father Carlos. There were 3 vessels in the umbilical cord. Cord blood was obtained. Evaluation of the perineum and vagina showed no evidence of lacerations. The baby had Apgars of 8 and 9, a weight of 2850 g (6 pounds 5 ounces) and a length of 20 inches. Stage III: The placenta delivered at 1005 hours in a Padilla presentation. It appeared intact and complete and was discarded per patient desire. Estimated blood loss was 100 cc. Patient plans to breast-feed. patient is done very well. She is voiding well, nursing without problems, has minimal lochia and is ambulating well. She is desiring discharge home. Condition: Good. 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 affecting SNOMED Code(s): 427530600046056 ICD Code: O98.319 - OTH INFECT W SEXL MODE OF TRANSMISS COMP PREG, UNSP TRI; A60.09 - HERPESVIRAL INFECTION OF OTHER UROGENITAL TRACT Status: Acute Current Visit: Yes (3) SROM (spontaneous rupture of membranes) SNOMED Code(s): 636766557 ICD Code: [id number] - Status: Acute Current Visit: Yes - Patient Instructions Diet: Regular Diet as Tolerated (Nursing diet with increased calories and calcium as recommended) Activity: As Tolerated (No intercourse tampons until bleeding resolves) Driving: May Drive Today Showering/Bathing: May Shower (May take a bath) Notify Provider of: Fever, Increased Pain, Swelling and Redness, Nausea and/or Vomiting - Discharge Plan Home Medications: Home Meds Ferrous Sulfate [Iron] 325 mg PO DAILY 02/01/17 [History] Vit #76/Iron,Carb/Fa [Pnv 29-1 Tablet] 1 each PO DAILY 02/01/17 [History] valACYclovir HCl [Valacyclovir] 500 mg Q12HR MDD tid 02/01/17 [History] Acetaminophen [Tylenol] 650 mg PO Q4H PRN tablet 04/07/21 [Rx] Ibuprofen [Motrin] 600 mg PO Q4H PRN tablet 04/07/21 [Rx] Referrals: Aspen Camargo MD [Primary Care Provider] - (Patient call for appointment to see Dr. Camargo .) - Discharge Summary/Plan Comment DC Time >30 min.: No Discharge Summary/Plan Comment: Discharge instructions: 1. Discharge home 2. Diet, activity and follow-up discussed with patient. Recommend nursing diet with increased calories and calcium. 3. Precautions given concern increased pain, bleeding, temperature, signs/symptoms of DVT/PE. 4. Medications per home medication was printed, discussed with and given to the patient. 5. [facility] 2 [facility]. Diagnosis: Term -delivered Condition: Good - Patient Data Vitals - Most Recent: Last Vital Signs Temp 36.6 C 04/07/21 04:59 Pulse 63 04/07/21 04:59 Resp 14 04/07/21 04:59 BP 114/76 04/07/21 04:59 Pulse Ox 95 04/07/21 04:59 Weight - Most Recent: 76.204 kg Med Orders - Current: Current Medications Acetaminophen (Acetaminophen 325 Mg Tab) 650 mg PO Q4H PRN PRN Reason: mild pain or fever Last Admin: 04/07/21 05:04 Dose: 650 mg Documented by: Benzocaine/Menthol (Benzocaine/Menthol 20%-0.5% [place] 56 Gm Canister) 0 gm TOP ASDIRECTED PRN PRN Reason: Perineal Comfort Measure Last Admin: 04/06/21 12:05 Dose: 1 can Documented by: Docusate Sodium (Docusate Sodium 100 Mg Cap) 100 mg PO BID PRN PRN Reason: Constipation Last Admin: 04/06/21 12:03 Dose: 100 mg Documented by: Ibuprofen (Ibuprofen 600 Mg Tab) 600 mg PO Q4H PRN PRN Reason: Mild pain or fever Last Admin: 04/07/21 05:01 Dose: 600 mg Documented by: Prenat Multivit/Ali [place]/Iron/Folic Ac ( Multivitamin With Calcium/Folic Acid/Iron Tab) 1 each PO DAILY SHANICE [place] Claudia (Witch Claudia Medicated Pads 40/Jar) 1 pad TOP ASDIRECTED PRN PRN Reason: Perineal Comfort Measure Last Admin: 04/06/21 12:03 Dose: 1 jar Documented by: Discontinued Medications Ampicillin Sodium (Ampicillin 2 Gm Advvial) Confirm Administered Dose 2 gm IV .STK-MED ONE Stop: 04/06/21 03:35 Last Admin: 04/06/21 07:32 Dose: Not Given Documented by: Diphenhydramine HCl (Diphenhydramine 50 Mg/Ml Sdv) 25 mg IVPUSH Q6H PRN PRN Reason: pruritis Ephedrine Sulfate (Ephedrine 50 Mg/Ml Sdv) 5 mg IVPUSH ASDIRECTED PRN PRN Reason: Hypotension Fentanyl (Fentanyl 100 Mcg/2 Ml Sdv) Confirm Administered Dose 100 mcg .ROUTE .STK-MED ONE Stop: 04/06/21 05:05 Fentanyl (Fentanyl 100 Mcg/2 Ml Sdv) 100 mcg EPIDUR Q3H PRN PRN Reason: Pain Last Admin: 04/06/21 05:38 Dose: 100 mcg Documented by: Fentanyl/Bupivacaine HCl (Bupivacaine/Fentanyl/Ns 100 Ml Bag) 100 ml EPIDUR ASDIRECTED PRN PRN Reason: Pain Last Admin: 04/06/21 05:38 Dose: 100 ml Documented by: Lactated Ringer's (Ringers, Lactated) 1,000 mls @ 100 mls/hr IV ASDIRECTED SHANICE Last Admin: 04/06/21 07:09 Dose: 100 mls/hr Documented by: Ampicillin Sodium 2 gm/ Sodium (Chloride) 100 mls @ 200 mls/hr IV ONETIME ONE Stop: 04/06/21 04:29 Last Admin: 04/06/21 03:30 Dose: 200 mls/hr Documented by: Ampicillin Sodium 1 gm/ Sodium (Chloride) 100 mls @ 200 mls/hr IV Q4H [facility] Last Admin: 04/06/21 07:14 Dose: 200 mls/hr Documented by: Oxytocin/Lactated Ringer's (Pitocin In Lr 10 Units/1,000 Ml) 10 unit in 1,000 mls @ 500 mls/hr IV .CONTINUOUS [facility] Last Admin: 04/06/21 10:02 Dose: 500 mls/hr Documented by: Lidocaine HCl (Lidocaine 1% 50 Ml Mdv) 50 ml INJECT ONETIME ONE Stop: 04/06/21 04:00 Nalbuphine HCl (Nalbuphine 10 Mg/1 Ml Vial) 10 mg IVPUSH Q2H PRN PRN Reason: Pain Ondansetron HCl (Ondansetron 4 Mg/2 Ml Sdv) 4 mg IVPUSH Q4H PRN PRN Reason: Nausea/Vomiting Sodium Chloride (Sodium Chloride 0.9% 10 Ml Syringe) 10 ml FLUSH ASDIRECTED PRN PRN Reason: Keep Vein Open
[2021-04-07 08:51] VITALS: BP 110/54; PULSE 76
[2021-04-07] MEDS ORDERED: Prenatal Multivitamin with Calcium/Folic Acid/Iron Tab PO SCH (09:00)
== END 2021-04-07 11:45 | disposition home or self-care (01) | DRG 560 ==
LOC: JD.OBCHECK 01:57 → JD.OB 01:57 → JD.OBCHECK 03:58 → JD.OB 03:59 → OBSVTOIN 10:02 → JD.OB 10:03
PROVIDERS: ADMIT Obstetrics & Gynecology; ATTEND Obstetrics & Gynecology
PROC: 10E0XZZ Delivery of Products of Conception, External Approach (ICD-10-PCS; principal; 2021-04-06)
PROC: 3E0R3BZ Introduction of Anesthetic Agent into Spinal Canal, Percutaneous Approach (ICD-10-PCS; 2021-04-06)
PROC: 00HU33Z Insertion of Infusion Device into Spinal Canal, Percutaneous Approach (ICD-10-PCS; 2021-04-06)
DX: O99.824 Streptococcus B carrier state complicating childbirth (principal); Z3A.39 39 weeks gestation of pregnancy; Z37.0 Single live birth
CPT/HCPCS: 01967; 36415; 51702; 59025; 59409; 84112; 85025; 86592; 86803; A9270-GY; J0290; J2590; J3010; J3490; J7120; U0002

== ENCOUNTER 2024-10-31 06:00 | Day surgery (SDC) | payer BC, OTHER ==
[~2024-10-31 06:00] MED LIST changes: -Bupivacaine 0.25% 10 ML SDV ONE; +Dexamethasone 4 MG/ML 5 ML MDV ONE; +EPINEPHrine 1 MG/ML SDV ONE; +Esmolol 100 MG/10 ML SDV ONE; +Lidocaine 1% 5 ML VIAL ONE; +Midazolam 1 MG/ML 2 ML SDV ONE; +Propofol 200 MG/20 ML SDV ONE; +Rocuronium 50 MG/5 ML Vial ONE; +Ropivacaine 0.5% 5 MG/ML 30 ML SDV ONE; +Sodium Chloride 0.9% 10 ML Syringe FLUSH PRN; +Sodium Chloride 0.9% 10 ML Syringe FLUSH SCH; +Sugammadex Sodium 200 MG/2 ML VIAL IV ONE; +ceFAZolin 2 GM Vial ONE; +dexmedeTOMIDine HCl 200 MCG/2 ML SDV ONE; +ePHEDrine 50 MG/ML SDV ONE
[2024-10-31] MEDS ORDERED: Ondansetron 4 MG/2 ML SDV ONE (06:30)
[2024-10-31] MEDS ORDERED: Propofol 200 MG/20 ML SDV ONE (06:30)
[2024-10-31] MEDS ORDERED: Lidocaine 1% 5 ML VIAL ONE (06:30)
[2024-10-31] MEDS ORDERED: Rocuronium 50 MG/5 ML Vial ONE (06:30)
[2024-10-31] MEDS ORDERED: Midazolam 1 MG/ML 2 ML SDV ONE (06:31)
[2024-10-31] MEDS ORDERED: ceFAZolin 2 GM Vial ONE (06:31)
[2024-10-31] MEDS ORDERED: fentaNYL 250 MCG/5 ML SDV ONE ×2 (06:31→07:59)
[2024-10-31] MEDS ORDERED: HYDROmorphone 0.5 MG/0.5 ML Syringe ONE ×2 (06:35→08:09)
[2024-10-31] MEDS ORDERED: dexmedeTOMIDine HCl 200 MCG/2 ML SDV ONE (06:38)
[2024-10-31] MEDS: Lactated Ringers 1,000 ML IV SCH (06:40)
[2024-10-31 06:48] LABS: BASOPHILS PERCENT AUTO 0.7 % (0.0-1.0); EOSINOPHILS ABSOLUTE AUTO 0.1 K/mm3 (0.0-0.4); EOSINOPHILS PERCENT AUTO 2.2 % (0.0-6.0); HEMATOCRIT 39.9 % (37.0-47.0); HEMOGLOBIN 13.4 gm/dl (12.0-16.0); LYMPHOCYTES ABSOLUTE AUTO 1.8 K/mm3 (1.0-4.8); LYMPHOCYTES PERCENT AUTO 39.5 % (24.0-44.0); MEAN CORPUSCULAR HGB CONC 33.6 g/dl (32.0-36.0); MEAN CORPUSCULAR VOLUME 89.3 fl (83.0-99.0); MEAN PLATELET VOLUME 10.6 fl (9.4-12.3); MONOCYTES ABSOLUTE AUTO 0.3 K/mm3 (0.0-0.8); MONOCYTES PERCENT AUTO 6.8 % (0.0-8.0); NEUTROPHILS ABSOLUTE AUTO 2.3 K/mm3 (1.8-7.7); NEUTROPHILS PERCENT AUTO 50.8 % (41.0-71.0); PLATELET COUNT,PLT 203 K/mm3 (150-400); RED BLOOD CELL COUNT 4.47 M/mm3 (4.10-5.30); WHITE BLOOD CELL COUNT,WBC 4.56 K/mm3 (3.9-11.3)
[2024-10-31] MEDS ORDERED: droPERidol 5 MG/2 ML SDV IVPUSH PRN (07:01)
[2024-10-31] MEDS ORDERED: fentaNYL 100 MCG/2 ML SDV IVPUSH PRN (07:01)
[2024-10-31] MEDS ORDERED: HYDROmorphone 0.5 MG/0.5 ML Syringe IVPUSH PRN (07:01)
[2024-10-31] MEDS ORDERED: Ondansetron 4 MG/2 ML SDV IVPUSH PRN (07:01)
[2024-10-31 07:07] LABS: BUN/CREATININE RATIO 17.8 (14-18); CALCIUM 9.2 mg/dL (8.5-10.1); CREATININE 0.9 mg/dL (0.55-1.02); EST CRCL DRUG DOSING (CG) 74.23 mL/min
[2024-10-31] MEDS ORDERED: Dexamethasone 4 MG/ML 5 ML MDV ONE (07:32)
[2024-10-31] MEDS ORDERED: ePHEDrine 50 MG/ML SDV ONE (07:45)
[2024-10-31] MEDS ORDERED: Lactated Ringers 1,000 ML ONE ×2 (08:03→08:55)
[2024-10-31] MEDS ORDERED: Ketorolac 30 MG/ML SDV ONE (08:20)
[2024-10-31] MEDS ORDERED: Sugammadex Sodium 200 MG/2 ML VIAL IV ONE (08:46)
[2024-10-31] MEDS ORDERED: Acetaminophen/oxyCODONE 325-5 MG Tab PO PRN (10:48)
[2024-10-31] MEDS: Bupivacaine 0.25% 10 ML SDV ONE (11:42)
[2024-10-31] MEDS: EPINEPHrine 1 MG/ML SDV ONE (11:48)
[2024-10-31] MEDS: Bupivacaine 0.5% 30 ML SDV ONE (11:51)
[2024-10-31 12:15] VITALS: BP 91/49; PULSE 70
== END 2024-10-31 12:15 | disposition home or self-care (01) ==
LOC: JD.SDS 06:00
PROVIDERS: ATTEND Obstetrics & Gynecology
DX: R87.612 Low grade squamous intraepithelial lesion on cytologic smear of cervix (LGSIL) (principal); Z79.899 Other long term (current) drug therapy
CPT/HCPCS: 36415; 58552; 80048; 81025; 85025; 86850; 86900; 86901; J0171; J0665; J0690; J1100; J1171; J1885; J2250; J2405; J2704; J3010; J3490; J7120; 00944; J2795

== ENCOUNTER 2024-11-22 09:58 | Observation (INO) | payer SELFPAY ==
[2024-11-22] MEDS ORDERED: Dexamethasone 4 MG/ML 5 ML MDV ONE (10:03)
[2024-11-22] MEDS ORDERED: fentaNYL 100 MCG/2 ML SDV ONE (10:03)
[2024-11-22] MEDS ORDERED: Ketorolac 30 MG/ML SDV ONE (10:03)
[2024-11-22] MEDS ORDERED: Ondansetron 4 MG/2 ML SDV ONE (10:03)
[2024-11-22] MEDS ORDERED: Propofol 200 MG/20 ML SDV ONE (10:03)
[2024-11-22] MEDS ORDERED: Lidocaine 2% 5 ML SDV ONE (10:03)
[2024-11-22] MEDS ORDERED: Sugammadex Sodium 200 MG/2 ML VIAL IV ONE (10:03)
[2024-11-22] MEDS ORDERED: ceFAZolin 2 GM Vial ONE (10:44)
[2024-11-22] MEDS ORDERED: ePHEDrine 50 MG/ML SDV ONE (10:49)
[2024-11-22 10:50] LABS: BASOPHILS ABSOLUTE AUTO 0.1 K/mm3 (0.0-0.2); EOSINOPHILS ABSOLUTE AUTO 0.3 K/mm3 (0.0-0.4); EOSINOPHILS PERCENT AUTO 5.3 % (0.0-6.0); HEMATOCRIT 37.1 % (37.0-47.0); HEMOGLOBIN 12.3 gm/dl (12.0-16.0); IMMATURE GRAN ABSOLUTE AUTO 0.01 K/mm3 (0.00-0.05); IMMATURE GRAN PERCENT AUTO 0.2 % (0.0-0.4); LYMPHOCYTES ABSOLUTE AUTO 1.8 K/mm3 (1.0-4.8); LYMPHOCYTES PERCENT AUTO 28.7 % (24.0-44.0); MEAN CORPUSCULAR HEMOGLOBIN 29.9 pg (28.0-32.0); MEAN CORPUSCULAR HGB CONC 33.2 g/dl (32.0-36.0); MEAN PLATELET VOLUME 10.4 fl (9.4-12.3); MONOCYTES ABSOLUTE AUTO 0.4 K/mm3 (0.0-0.8); MONOCYTES PERCENT AUTO 6.6 % (0.0-8.0); NEUTROPHILS ABSOLUTE AUTO 3.6 K/mm3 (1.8-7.7); NEUTROPHILS PERCENT AUTO 58.2 % (41.0-71.0); PLATELET COUNT,PLT 355 K/mm3 (150-400); RED BLOOD CELL COUNT 4.12 M/mm3 (4.10-5.30); WHITE BLOOD CELL COUNT,WBC 6.23 K/mm3 (3.9-11.3)
[2024-11-22] MEDS: Lactated Ringers 1,000 ML IV ONE (10:55)
[2024-11-22 10:56] LABS: INR 1.08; PROTHROMBIN TIME 11.4 SECONDS (9.7-12.0)
[2024-11-22 10:59] LABS: ALBUMIN 3.6 g/dl (3.4-5.0); ANION GAP 12.9 (5-15); BILIRUBIN TOTAL 0.3 mg/dL (0.2-1.0); BUN/CREATININE RATIO 12.7 (14-18); CALCIUM 9.1 mg/dL (8.5-10.1); CREATININE 1.1 mg/dL (0.55-1.02); EST CRCL DRUG DOSING (CG) 60.74 mL/min; POTASSIUM,K 3.9 mEq/L (3.5-5.1); PROTEIN TOTAL,TP 7.3 g/dl (6.4-8.2)
[2024-11-22] MEDS ORDERED: HYDROmorphone 0.5 MG/0.5 ML Syringe IVPUSH PRN (11:27)
[2024-11-22] MEDS ORDERED: fentaNYL 100 MCG/2 ML SDV IVPUSH PRN (11:27)
[2024-11-22] MEDS ORDERED: Ondansetron 4 MG/2 ML SDV IVPUSH PRN ×2 (11:27→13:30)
[2024-11-22] MEDS ORDERED: Lidocaine 1% with EPINEPHrine 1:100,000 20 ML MDV ONE (12:36)
[2024-11-22] MEDS: Lidocaine 1% 30 ML SDV ONE (12:43)
[2024-11-22] MEDS ORDERED: Acetaminophen/oxyCODONE 325-5 MG Tab PO PRN ×2 (13:30)
[2024-11-22] MEDS: ceFAZolin 2 GM in Sodium Chloride 0.9% 100 ML IV ONE (14:27)
[2024-11-22] MEDS: Ampicillin 2 GM in Sodium Chloride 0.9% 100 ML IV SCH (14:32)
[2024-11-22] MEDS: Sodium Chloride 0.9% 250 ML IV SCH (14:32)
[2024-11-22] MEDS: Clindamycin Phosphate in D5W 900 MG in Premix Bag 1 BAG IV SCH (15:17)
[2024-11-22] MEDS: Docusate Sodium 100 MG Cap PO SCH (20:44)
[2024-11-22] MEDS: Ketorolac 30 MG/ML SDV IVPUSH SCH (20:44)
[2024-11-23] MEDS: Ampicillin 2 GM in Sodium Chloride 0.9% 100 ML IV SCH (03:08)
[2024-11-23 04:19] VITALS: PULSE 56
[2024-11-23 04:21] VITALS: BP 106/60
[2024-11-23 05:51] LABS: HEMATOCRIT 28.5 % (37.0-47.0); MEAN CORPUSCULAR HEMOGLOBIN 29.7 pg (28.0-32.0); MEAN CORPUSCULAR VOLUME 89.9 fl (83.0-99.0); MEAN PLATELET VOLUME 10.3 fl (9.4-12.3); PLATELET COUNT,PLT 292 K/mm3 (150-400); RED BLOOD CELL COUNT 3.17 M/mm3 (4.10-5.30)
[2024-11-23 05:54] LABS: HEMOGLOBIN 9.4 gm/dl (12.0-16.0)
[2024-11-23 06:22] LABS: A/G RATIO 0.9 (1-2); ALBUMIN 2.8 g/dl (3.4-5.0); ANION GAP 10.2 (5-15); BILIRUBIN TOTAL 0.3 mg/dL (0.2-1.0); BUN/CREATININE RATIO 11.4 (14-18); CALCIUM 8.4 mg/dL (8.5-10.1); CREATININE 0.7 mg/dL (0.55-1.02); EST CRCL DRUG DOSING (CG) 95.44 mL/min; POTASSIUM,K 4.2 mEq/L (3.5-5.1); PROTEIN TOTAL,TP 5.9 g/dl (6.4-8.2)
[2024-11-23] MEDS: Citalopram 20 MG Tab PO SCH (08:08)
[2024-11-23] MEDS: buPROPion 150 MG Tab.SR PO SCH (08:08)
[2024-11-23] MEDS ORDERED: Gentamicin 160 MG in Sodium Chloride 0.9% 100 ML IV SCH (16:00)
== END 2024-11-23 10:10 | disposition home or self-care (01) ==
LOC: JD.SDS 09:58 → JD.MS 13:24
PROVIDERS: ADMIT Obstetrics & Gynecology; ATTEND Obstetrics & Gynecology
DX: T81.328A Disruption or dehiscence of closure of other specified internal operation (surgical) wound, initial encounter (principal); N99.820 Postprocedural hemorrhage of a genitourinary system organ or structure following a genitourinary system procedure; F32.A Depression, unspecified; Z79.899 Other long term (current) drug therapy; Y83.8 Other surgical procedures as the cause of abnormal reaction of the patient, or of later complication, without mention of misadventure at the time of the procedure
CPT/HCPCS: 00840; 36415; 80053; 80170; 85025; 85027; 85610; 99140; A9270-GY; J0290; J0690; J0736; J1100; J1580; J1885; J2405; J2704; J3010; J3490; J7120